=== PATIENT | male | born 1970 | race Caucasian/White ===

== ENCOUNTER 2017-03-29 21:21 | Outpatient (CLI) | payer OTHER, BC | END 2017-03-29 21:22 | disposition critical access hospital (66) | LOC: EMS 21:21 | PROVIDERS: ATTEND Surgery | DX: R07.9 Chest pain, unspecified (principal); R06.02 Shortness of breath | CPT/HCPCS: A0425; A0427 ==

== ENCOUNTER 2017-03-29 22:06 | Emergency (ER) | payer OTHER, BC ==
[2017-03-29] MEDS ORDERED: SODIUM CHLORIDE 0.9% 1,000 ML IV ONE ×2 (22:28→23:10)
[2017-03-29] MEDS ORDERED: LORazepam 2 MG/ML SYRINGE IVP STA (22:28)
[2017-03-29] MEDS ORDERED: LORazepam 2 MG/ML SYRINGE ONE (22:33)
--- NOTE | 2017-03-29 22:33 | ED Physician Documentation ---
PD HPI CHEST PAIN - Stated complaint Stated Complaint: CP - Chief complaint Chief Complaint: Cardiac - History obtained from History obtained from: Patient - History of Present Illness Timing - onset: How many hours ago (2) Timing - onset during: Rest Quality: Pressure Location: Left chest, Right chest Associated symptoms: Shortness of air Similar symptoms before: Has not had sx before - Treatment prior to arrival Treatment prior to arrival: Medics administered 4 baby aspirin and 2 sublingual nitroglycerin, without relief of symptoms. - Additional information Additional information: The patient is a 46-year-old male who arrives via ambulance complaining of anterior chest pressure and shortness of breath, as well as rapid heart rate, that started about 2 hours prior to arrival after eating two marijuana brownies. He denies nausea, vomiting, or diaphoresis. He had eaten popcorn and the 2 pot brownies just prior to the onset of his symptoms. He routinely uses marijuana, and denies history of similar symptoms in the past. He is currently visiting here from [place]. Cardiac risk factors are positive for hyperlipidemia and for family history of early MS in his father at age 49. He denies history of cigarette smoking, diabetes, or hypertension. Review of Systems Constitutional: denies: Fever Ears: denies: Tinnitus/ringing Nose: denies: Congestion Throat: denies: Sore throat Cardiac: reports: Chest pain / pressure, Palpitations Respiratory: reports: Dyspnea. denies: Cough GI: denies: Abdominal Pain, Nausea, Vomiting : denies: Dysuria Skin: denies: Rash Musculoskeletal: denies: Back pain, Extremity swelling Neurologic: denies: Focal weakness, Numbness, Headache PD PAST MEDICAL HISTORY - Past Medical History Past Medical History: Yes Cardiovascular: High cholesterol Respiratory: None Neuro: None Endocrine/Autoimmune: None GI: None : None HEENT: None Musculoskeletal: Chronic back pain Derm: None - Past Surgical History Past Surgical History: Yes General: Appendectomy Ortho: Spine surgery - Present Medications Home Medications: Ambulatory Orders Medication Instructions Recorded Confirmed No Known Home Medications [No 03/29/17 03/29/17 Known Home Medications] - Allergies Allergies/Adverse Reactions: Allergies Allergy/AdvReac Type Severity Reaction Status Date / Time No Known Drug Allergies Allergy Verified 03/29/17 22:32 - Social History Does the pt smoke?: No Smoking Status: Never smoker Does the pt drink ETOH?: No Substance Use and Type: Marijuana Additional Social History: Visiting here from [place]. - Immunizations Immunizations are current?: Yes PD ED PE NORMAL - Vitals Vital signs reviewed: Yes (tachycardic) - General General: Alert and oriented X 3, Well developed/nourished - HEENT HEENT: Atraumatic, EOMI, Pharynx benign - Neck Neck: No adenopathy, No JVD - Cardiac Cardiac: No murmur, Other (Rapid rate, regular rhythm.) - Respiratory Respiratory: No respiratory distress, Clear bilaterally - Abdomen Abdomen: Soft, Non tender - Back Back: No CVA TTP - Derm Derm: No rash - Extremities Extremities: No edema, No calf tenderness / cord - Neuro Neuro: Alert and oriented X 3, No motor deficit, Normal speech Results - Vitals Vitals: Oxygen O2 Source Room air - EKG (time done) 22:16 Rate: Rate (enter#) (109) Rhythm: Sinus tachycardia [place]: Normal Intervals: Prolonged FL (Borderline prolonged FL interval.) QRS: Normal Ischemia: Normal ST segments Computer interpretation: Agree with computer PD MEDICAL DECISION MAKING - ED course Complexity details: reviewed results, re-evaluated patient, considered differential, d/w patient, d/w family ED course: The patient's presentation is consistent with symptomatic tachycardia after eating marijuana brownies. Cardiac ischemia was considered, but is less likely. His electrocardiogram reveals no ischemic abnormalities. Sublingual nitroglycerin 2 did not change his symptoms. Treatment in the emergency department included administration of normal saline 2 L IV, and lorazepam 0.5 mg IV. Over the ensuing 2 hours his symptoms completely resolved, and his heart rate came down into the low 90s. I discussed with him and his mother the likely etiology of his symptoms, as well as potentially worrisome signs or symptoms that should prompt reevaluation in the emergency department. Departure - Departure Disposition: 01 Home, Self Care Clinical Impression: Sinus tachycardia Condition: Stable Instructions: ED Tachycardia Pat PSVT Comments: With edible marijuana products it is important to take small quantities at any one time. Drink plenty of fluids. Return to the emergency department if you develop recurrent or increasing tachycardia, chest pain, shortness of breath, persistent vomiting, or otherwise worsening symptoms. Discharge Date/Time: 03/30/17 00:43
[2017-03-30 00:35] VITALS: BP 122/71
== END 2017-03-30 00:43 | disposition home or self-care (01) ==
LOC: ED 22:06
DX: R00.0 Tachycardia, unspecified (principal); R07.89 Other chest pain; E78.5 Hyperlipidemia, unspecified; F12.90 Cannabis use, unspecified, uncomplicated; Z82.49 Family history of ischemic heart disease and other diseases of the circulatory system
CPT/HCPCS: 93005; 96374; 99284; J2060